=== PATIENT | male | born 1970 | race African-American/Black ===

== ENCOUNTER 2023-06-25 14:58 | Emergency (ER) | payer OTHER ==
[2023-06-25 15:09] VITALS: BP 160/84; PULSE 81; RESP 18; TEMP 98.5; BMI 25.8
[2023-06-25] MEDS ORDERED: ACETAMINOPHEN 500 MG TABLET (FP) PO ONE (16:24)
[2023-06-25] MEDS ORDERED: ACETAMINOPHEN 325 MG TABLET (FP) ONE (16:33)
== END 2023-06-25 17:17 | disposition home or self-care (01) ==
LOC: JERFT 14:58
DX: R22.41 Localized swelling, mass and lump, right lower limb (principal); M79.671 Pain in right foot
CPT/HCPCS: 73630-TC-RT-FY; 99283-25